=== PATIENT | female | born 1950 | race Caucasian/White ===

== ENCOUNTER 2017-12-08 18:11 | Inpatient (IN) | payer OTHER, MEDICARE ==
[2017-12-08] MEDS ORDERED: IPRATROPIUM/ALBUTEROL 3 ML DEYVIAL ONE (18:24)
[2017-12-08] MEDS ORDERED: IPRATROPIUM/ALBUTEROL 3 ML DEYVIAL IH ONE ×2 (18:34→18:40)
--- NOTE | 2017-12-08 18:35 | EDPHY ---
H & P Stated Complaint: sob Time Seen by Provider: 12/08/17 18:34 HPI/ROS: HPI: This is a 59-year-old female who presents with Chief Complaint: Cough x2 weeks Location: Chest Quality: Cough Duration: 2 weeks Signs and Symptoms: no shortness of breath at rest, no shortness of breath on exertion, + productive cough, + pleuritic chest pain, no palpitations, no lower extremity edema, + wheezing, no orthopnea, no paroxysmal nocturnal dyspnea, no fever, no injury/trauma, no hemoptysis, no carpal pedal spasms Timing: Worsening Severity: Moderate Context: Patient has a history of asthma-nonsmoker, presents from primary care office with concerns of pneumonia. Reports that approximately 2 weeks ago she felt like she had the flu with fever, body aches, fatigue, and nonproductive cough. Reports that over the last 1 week her symptoms have rapidly worsened now she has productive cough with green sputum and wheezing. Patient reports that she normally does not have to use her albuterol inhaler. Modifying Factors: [id number] antipyretic Comment: ROS: see HPI Constitutional: + fever, no chills, no weight loss Eyes: No blurred vision Respiratory: + shortness of breath, + cough Cardiovascular: No chest pain, no palpitations, no lower extremity edema Gastrointestinal: No nausea, no vomiting, no diarrhea Genitourinary: No dysuria Extremities: No myalgias Neurologic: No weakness, no numbness Skin: No rashes Hematologic: No bruising, no bleeding MEDICAL/SURGICAL/SOCIAL HISTORY: Medical/surgical history: cholesterol, hypothyroidism, GERD, 4 joint replacements; arthritis, ITP, c.diff, asthma Social history: . Retired. CONSTITUTIONAL: Ill but nontoxic-appearing elderly white female, awake and alert, no obvious distress HEENT: Atraumatic and normocephalic, PERRL, EOMI. Tympanic membranes clear. Oropharynx clear, no exudate and moist pink mucosa. Airway patent. No lymphadenopathy. No meningismus. Cardiovascular: Normal S1/S2, tachycardia, regular rhythm, without murmur rub or gallop. PULMONARY/CHEST: Symmetrical and nontender. Rhonchi throughout; fair air movement. Tachypnea noted. Mild accessory muscle usage. ABDOMEN: Soft, nondistended, nontender, no rebound, no guarding, no peritoneal signs, no masses or organomegaly. No CVAT. EXTREMITIES: 2/2 pulses, strength 5/5, no deformities, no clubbing, no cyanosis or edema. NEUROLOGICAL: no focal neuro deficits. GCS 15. SKIN: Warm and dry, no erythema. no rash. Good capillary refill. Source: Patient Exam Limitations: No limitations - Personal History Current Tetanus/Diphtheria Vaccine: Yes Current Tetanus Diphtheria and Acellular Pertussis (TDAP): Yes Tetanus Vaccine Date: 2013 - Medical/Surgical History Hx Asthma: Yes Hx Chronic Respiratory Disease: No Hx Diabetes: No Hx Cardiac Disease: No Hx Renal Disease: No Hx Cirrhosis: No Hx Alcoholism: No Hx HIV/AIDS: No Hx Splenectomy or Spleen Trauma: No Other PMH: cholesterol, hypothyoid, GERD. 4 joint replacements; arthritis, ITP , c.diff - Social History Smoking Status: Never smoked Constitutional: Initial Vital Signs Temperature (C) 36.9 C 12/08/17 18:17 Heart Rate 115 H 12/08/17 18:17 Respiratory Rate 24 H 12/08/17 18:17 Blood Pressure 145/74 H 12/08/17 18:17 O2 Sat (%) 91 L 12/08/17 18:17 O2 Delivery Mode Room Air Allergies/Adverse Reactions: Penicillins Allergy (Mild, Verified 12/08/17 18:15) Rash MACADAMIAN NUTS Allergy (Severe, Uncoded 12/08/17 18:15) Anaphylaxis Home Medications: Medication Instructions Recorded Fluocinonide 0.05% [Lidex 0.05% 1 yasmin TP BID PRN 10/04/14 Ointment] Levothyroxine [Synthroid 175 mcg 175 mcg PO DAILY06 10/04/14 (*)] Simvastatin [Zocor 40 mg] 40 mg PO HS 10/04/14 Ferrous Sulfate [Ferrous Sulf 325 325 mg PO DAILY #30 tab 10/05/14 MG (*)] Pantoprazole Sodium [Protonix 40mg 40 mg PO DAILY #30 tab 10/05/14 (*)] Ibuprofen 12/08/17 Probiotic 12/08/17 Vitamin D3 12/08/17 Medical Decision Making - Diagnostics EKG Interpretation: 12 lead EKG: Indication: Shortness of breath Rhythm: Sinus tachycardia, rate 111 beats per minute [place]: Normal Intervals: Normal QRS: Normal ST segments: Normal T-waves: Normal INTERPRETATION: No acute ischemic changes The 12 lead EKG was interpreted by myself and with attending. Imaging Results: Imaging Impressions Chest X-Ray 12/08/17 18:35 Impression: Findings consistent with airways disease are noted. Streaky perihilar opacities and left lower lobe opacity could reflect superimposed pneumonia. ED Course/Re-evaluation: Vital signs reviewed upon arrival and 91%. O2 sats were 88% in the PCP office. Sepsis protocol initiated. EKG, Labs, blood cultures, chest x-ray, IV fluids, IV medication, nebulizer therapy, oral medications ordered Given 500 cc normal saline, Tessalon Perle, DuoNeb x2, IV Solu-Medrol 125 mg 1925: Labs reviewed and show WBC 21.87 K, potassium 3.2; given oral supplementation 20 mEq Chest x-ray my read shows airways disease are noted. Streaky perihilar opacities and left lower lobe opacity could reflect superimposed pneumonia. IV Rocephin and Zithromax ordered. Reassessed vitals; no improvement from admission to ER. 1947: ED decision to consult for admission. Community-acquired pneumonia, asthma exacerbation and hypoxia. Spoke with hospitalist, Dr. Carr, who kindly agrees to admit patient and provide further care. This patient was seen under the supervision of my secondary supervising physician. I evaluated care for this patient independently. Discussed this patient with Dr. Rhoades who did not see the patient. Differential Diagnosis: Shortness of breath including but not limited to pulmonary infectious process, COPD, asthma, pulmonary embolus and congestive heart failure. - Data Points Laboratory Results: Laboratory Results 12/08/17 18:30 12/08/17 18:30 12/08/17 12/08/17 12/08/17 18:52 18:30 18:30 WBC 21.87 10^3/uL H 10^3/uL (3.80-9.50) RBC 4.88 10^6/uL 10^6/uL (4.18-5.33) Hgb 13.6 g/dL g/dL (12.6-16.3) Hct 42.1 % % (38.0-47.0) MCV 86.3 fL fL (81.5-99.8) MCH 27.9 pg pg (27.9-34.1) MCHC 32.3 g/dL L g/dL (32.4-36.7) RDW 14.3 % % (11.5-15.2) Plt Count 296 10^3/uL 10^3/uL (150-400) MPV 10.8 fL fL (8.7-11.7) Neut % (Auto) 90.3 % H % (39.3-74.2) Lymph % (Auto) 3.5 % L % (15.0-45.0) Mcmullen % (Auto) 4.5 % % (4.5-13.0) Eos % (Auto) 0.4 % L % (0.6-7.6) Baso % (Auto) 0.2 % L % (0.3-1.7) Nucleat RBC Rel Count 0.0 % % (0.0-0.2) Absolute Neuts (auto) 19.74 10^3/uL H 10^3/uL (1.70-6.50) Absolute Lymphs (auto) 0.76 10^3/uL L 10^3/uL (1.00-3.00) Absolute Monos (auto) 0.98 10^3/uL H 10^3/uL (0.30-0.80) Absolute Eos (auto) 0.09 10^3/uL 10^3/uL (0.03-0.40) Absolute Basos (auto) 0.05 10^3/uL 10^3/uL (0.02-0.10) Absolute Nucleated RBC 0.00 10^3/uL 10^3/uL (0-0.01) Immature Gran % 1.1 % % (0.0-1.1) Immature Gran # 0.25 10^3/uL H 10^3/uL (0.00-0.10) VBG Lactic Acid 1.4 mmol/L mmol/L (0.7-2.1) Sodium 143 mEq/L mEq/L (135-145) Potassium 3.2 mEq/L L mEq/L (3.5-5.2) Chloride 105 mEq/L mEq/L (97-110) Carbon Dioxide 24 mEq/l mEq/l (22-31) Anion Gap 14 mEq/L mEq/L (8-16) BUN 17 mg/dL mg/dL (7-23) Creatinine 0.7 mg/dL mg/dL (0.6-1.0) Estimated GFR > 60 Glucose 112 mg/dL H mg/dL (70-100) Calcium 8.6 mg/dL mg/dL (8.5-10.4) Total Bilirubin 1.0 mg/dL mg/dL (0.1-1.4) Conjugated Bilirubin 0.6 mg/dL H mg/dL (0.0-0.5) Unconjugated Bilirubin 0.4 mg/dL mg/dL (0.0-1.1) AST 57 IU/L H IU/L (14-46) ALT 47 IU/L IU/L (9-52) Alkaline Phosphatase 143 IU/L H IU/L (38-126) Total Protein 5.7 g/dL L g/dL (6.3-8.2) Albumin 3.4 g/dL L g/dL (3.5-5.0) Medications Given: Azithromycin 500 mg/ Dextrose 255 mls @ 255 mls/hr IV EDNOW ONE PRN Reason: Protocol Stop: 12/08/17 20:25 Last Admin: 12/08/17 20:05 Dose: 255 mls Discontinued Medications Albuterol/Ipratropium (Duoneb) 3 ml IH EDNOW ONE Stop: 12/08/17 18:35 Last Admin: 12/08/17 18:35 Dose: 3 ml Albuterol/Ipratropium (Duoneb) 3 ml IH EDNOW ONE Stop: 12/08/17 18:41 Last Admin: 12/08/17 19:06 Dose: 3 ml Benzonatate (Tessalon Pearles) 200 mg PO EDNOW ONE Stop: 12/08/17 18:40 Last Admin: 12/08/17 19:00 Dose: 200 mg Sodium Chloride (Ns) 500 mls @ 1,000 mls/hr IV EDNOW ONE PRN Reason: Protocol Stop: 12/08/17 19:09 Last Admin: 12/08/17 19:09 Dose: 500 mls Ceftriaxone Sodium 2 gm/ (Sterile Water) 20 mls @ 300 mls/hr IV EDNOW ONE PRN Reason: Protocol Stop: 12/08/17 19:29 Last Admin: 12/08/17 20:00 Dose: 20 mls Methylprednisolone Sodium Succinate (Solu-Medrol) 125 mg IVP EDNOW ONE Stop: 12/08/17 18:40 Last Admin: 12/08/17 19:09 Dose: 125 mg Departure - Departure Disposition: [facility] Inpatient Acute Clinical Impression: Hypoxia Community acquired pneumonia Qualifiers: Laterality: unspecified laterality Qualified Code(s): J18.9 - Pneumonia, unspecified organism Asthma with acute exacerbation in adult Qualifiers: Asthma severity: moderate Asthma persistence: persistent Qualified Code(s): J45.41 - Moderate persistent asthma with (acute) exacerbation Condition: Fair
[2017-12-08] MEDS ORDERED: BENZONATATE 100 MG CAP PO ONE (18:39)
[2017-12-08] MEDS ORDERED: methylPREDNISolone SOD SUCC 125 MG/2 ML VIAL IVP ONE (18:39)
[2017-12-08] MEDS ORDERED: NS 500 ML IV ONE (18:40)
[2017-12-08 18:59] LABS: PLATELET COUNT 296 10^3/uL (150-400)
--- NOTE | 2017-12-08 19:25 | CPEKG ---
Heart Rate: 111 RR Interval: 541 P-R Interval: 136 QRSD Interval: 90 QT Interval: 332 QTC Interval: 451 P [place]: 58 QRS [place]: -9 T Wave [place]: 5 EKG Severity - BORDERLINE ECG - EKG Impression: SINUS TACHYCARDIA EKG Impression: PROBABLE LEFT ATRIAL ABNORMALITY Electronically Signed By: Spike Rhoades 08-Dec-2017 21:01:31
[2017-12-08] MEDS ORDERED: AZITHROMYCIN IV 500 MG in D5W 250 ML IV ONE (19:26)
[2017-12-08] MEDS ORDERED: cefTRIAXone 2 GM in STERILE WATER INJ 20 ML IV ONE (19:26)
[2017-12-08] MEDS ORDERED: ACETAMINOPHEN 325 MG TAB PO PRN (22:32)
[2017-12-08] MEDS ORDERED: ALBUTEROL 3 ML DEYVIAL IH PRN (22:32)
[2017-12-08] MEDS ORDERED: ONDANSETRON 4 MG/2 ML VIAL IVP PRN (22:32)
[2017-12-08] MEDS ORDERED: PROTOCOL POTASSIUM 1 DOSE MISC PRN (22:37)
[2017-12-08] MEDS ORDERED: POTASSIUM CL 20 MEQ TAB PO ONE (23:00)
--- NOTE | 2017-12-08 23:56 | PDGENHP ---
History and Physical - Chief Complaint cough - History of Present Illness Source-patient provides history appears reliable. EMR was reviewed and case discussed with accepting hospitalist provider. HPI - this is a very pleasant 67-year-old female with past medical history significant for intermittent if not rare asthma who presents emergency department today with complaints of progressive cough worsening over the last 2 weeks. Patient also has been experiencing increasing shortness of breath particularly on orthopnea can nature and with exertion. She has had increasing productivity in her cough that is now green sputum. She has also noting some pleuritic-type chest pain related to persistent coughing. She has experienced some wheezing her asthma has been relatively well controlled and she has not had an inhaler requirement and sometime and has not had this available. Patient states that she developed flu-like symptoms approximately 2 weeks ago where she was experiencing fevers without any chills and diffuse myalgias. Patient denies any chest pain palpitations dysuria hematuria diarrhea abdominal pain or any new rashes or sores. She has had some fevers without any chills. History Information - Allergies/Home Medication List Allergies/Adverse Reactions: Penicillins Allergy (Mild, Verified 12/08/17 18:15) Rash MACADAMIAN NUTS Allergy (Severe, Uncoded 12/08/17 18:15) Anaphylaxis Home Medications: Levothyroxine [Synthroid 175 mcg (*)] 175 mcg PO DAILY06 10/04/14 [Last Taken 06:00] Simvastatin [Zocor 40 mg] 40 mg PO HS 10/04/14 [Last Taken 12/07/17] Cholecalciferol (Vitamin D3) [Vitamin D3] 5,000 units PO DAILY 12/08/17 [Last Taken 12/08/17 09:00] Ferrous Sulfate [Ferrous Sulf 325 MG (*)] 325 mg PO BID 12/08/17 [Last Taken 09:00] Herbals/Supplements -Info Only 1 ea PO DAILY 12/08/17 [Last Taken Unknown] Ibuprofen [Motrin (*)] 800 mg PO BID 12/08/17 [Last Taken 12/08/17 09:00] I have personally reviewed and updated: family history, medical history, social history, surgical history - Past Medical History asthma Additional medical history: Asthma, HLD, hypothyroidism, GERD, osteoarthritis, ITP, C difficile - Surgical History Additional surgical history: Total joint replacement -bilateral shoulders, bilateral knees, x2 - Family History Additional family history: Patient denies asthma/COPD, CAD, dm 2 - Social History Smoking Status: Never smoked Alcohol Use: None Drug Use: None Additional social history: and lives with . 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 Cor status-full Review of Systems Review of Systems: ROS: 10pt was reviewed & negative except for what was stated in HPI & below Constitutional: Reports: chills, fever, recent illness (X2 weeks patient developed viral type symptoms appeared to resolve 1 week ago) EENMT: Reports: sore throat, other (No rhinorrhea). Denies: blurred vision, nose congestion Cardiac: Reports: no symptoms. Denies: chest pain, palpitations Respiratory: Reports: cough (Productive of green sputum.), orthopnea, shortness of breath (With exertion), wheezing, other (See HPI.) Gastrointestinal: Reports: no symptoms. Denies: vomitting, abdominal pain, diarrhea, nausea Genitourinary: Reports: no symptoms, dysuria. Denies: hematuria Muscolosketal: Reports: joint pain (Osteoarthritis), muscle pain (Pleuritic chest pain) Skin: Reports: no symptoms Neurological: Reports: no symptoms. Denies: headache, weakness Physical Exam Physical Exam: Selected Entries 12/08/17 18:17 Blood Pressure Automatic Method Heart Rate 115 H Respiratory 24 H Rate O2 Sat (%) 91 L Temperature (C) 36.9 C Blood Pressure 145/74 H Mean Arterial 97 Pressure (MAP) O2 Delivery Room Air Mode Temperature Oral Source Temp Pulse Resp BP Pulse Ox 36.9 C 88 22 H 114/66 93 12/08/17 23:26 12/08/17 23:26 12/08/17 23:26 12/08/17 23:26 12/08/17 23:26 O2 (L/minute) 2 Constitutional: not in pain, chronically ill appearing, obese, other (Patient in no acute distress. She is lying quietly in bed with mild increased work of breathing.) Eyes: PERRL, anicteric sclera, EOMI (Grossly intact), No scleral injection Ears, Nose, Mouth, Throat: moist mucous membranes, other (No nasal discharge), No poor dentition Cardiovascular: pulses symmetric bilaterally, tachycardia, other (Regular rhythm ), No systolic murmur, No edema Peripheral Pulses: 2+: dorsalis-pedis (R), dorsalis-pedis (L) Respiratory: reduced air movement, inspiratory crackles (Left lower lung base greater than the right lower lung), rhonchi (Bilateral lower lung leary.), other (Patient with increased work of breathing.), No clear to auscultation, No expiratory wheeze Gastrointestinal: normoactive bowel sounds, soft, non-tender abdomen, no palpable masses, No rebound, No distension Genitourinary: no bladder tenderness, No serra in urethra Skin: warm, normal color, no rashes or abrasions, No rash Musculoskeletal: other (Patient moves all extremities. Strength grossly intact. Patient able to sit up independently.), No generalized weakness Neurologic: AAOx3, sensation intact bilaterally, CN II-XII Intact (Grossly intact nonfocal.), No numbness, No facial droop Psychiatric: interacting appropriately, not anxious, not encephalopathic, thought process linear Lab Data & Imaging Review 12/08/17 18:30 12/08/17 18:30 WBC 21.87 10^3/uL (3.80-9.50) H 12/08/17 18:30 RBC 4.88 10^6/uL (4.18-5.33) 12/08/17 18:30 Hgb 13.6 g/dL (12.6-16.3) 12/08/17 18:30 Hct 42.1 % (38.0-47.0) 12/08/17 18:30 MCV 86.3 fL (81.5-99.8) 12/08/17 18:30 MCH 27.9 pg (27.9-34.1) 12/08/17 18:30 MCHC 32.3 g/dL (32.4-36.7) L 12/08/17 18:30 RDW 14.3 % (11.5-15.2) 12/08/17 18:30 Plt Count 296 10^3/uL (150-400) 12/08/17 18:30 MPV 10.8 fL (8.7-11.7) 12/08/17 18:30 Neut % (Auto) 90.3 % (39.3-74.2) H 12/08/17 18:30 Lymph % (Auto) 3.5 % (15.0-45.0) L 12/08/17 18:30 Barry % (Auto) 4.5 % (4.5-13.0) 12/08/17 18:30 Eos % (Auto) 0.4 % (0.6-7.6) L 12/08/17 18:30 Baso % (Auto) 0.2 % (0.3-1.7) L 12/08/17 18:30 Nucleat RBC Rel Count 0.0 % (0.0-0.2) 12/08/17 18:30 Absolute Neuts (auto) 19.74 10^3/uL (1.70-6.50) H 12/08/17 18:30 Absolute Lymphs (auto) 0.76 10^3/uL (1.00-3.00) L 12/08/17 18:30 Absolute Monos (auto) 0.98 10^3/uL (0.30-0.80) H 12/08/17 18:30 Absolute Eos (auto) 0.09 10^3/uL (0.03-0.40) 12/08/17 18:30 Absolute Basos (auto) 0.05 10^3/uL (0.02-0.10) 12/08/17 18:30 Absolute Nucleated RBC 0.00 10^3/uL (0-0.01) 12/08/17 18:30 Immature Gran % 1.1 % (0.0-1.1) 12/08/17 18:30 Immature Gran # 0.25 10^3/uL (0.00-0.10) H 12/08/17 18:30 VBG Lactic Acid 1.4 mmol/L (0.7-2.1) 12/08/17 18:52 Sodium 143 mEq/L (135-145) 12/08/17 18:30 Potassium 3.2 mEq/L (3.5-5.2) L 12/08/17 18:30 Chloride 105 mEq/L (97-110) 12/08/17 18:30 Carbon Dioxide 24 mEq/l (22-31) 12/08/17 18:30 Anion Gap 14 mEq/L (8-16) 12/08/17 18:30 BUN 17 mg/dL (7-23) 12/08/17 18:30 Creatinine 0.7 mg/dL (0.6-1.0) 12/08/17 18:30 Estimated GFR > 60 12/08/17 18:30 Glucose 112 mg/dL (70-100) H 12/08/17 18:30 Calcium 8.6 mg/dL (8.5-10.4) 12/08/17 18:30 Total Bilirubin 1.0 mg/dL (0.1-1.4) 12/08/17 18:30 Conjugated Bilirubin 0.6 mg/dL (0.0-0.5) H 12/08/17 18:30 Unconjugated Bilirubin 0.4 mg/dL (0.0-1.1) 12/08/17 18:30 AST 57 IU/L (14-46) H 12/08/17 18:30 ALT 47 IU/L (9-52) 12/08/17 18:30 Alkaline Phosphatase 143 IU/L (38-126) H 12/08/17 18:30 Total Protein 5.7 g/dL (6.3-8.2) L 12/08/17 18:30 Albumin 3.4 g/dL (3.5-5.0) L 12/08/17 18:30 Imaging Review: PA and Lateral Chest Clinical Indications: Loss and shortness of breath x1 week in a 67-year-old female. Comparison: April 17, 2011. Findings: Peribronchial thickening is noted. There is more focal opacity at the left lung base which could reflect pneumonia.. There is hyperexpansion with flattening of the hemidiaphragms noted. Streaky perihilar opacities are present bilaterally. The heart size and pulmonary vascularity are normal. Pleural surfaces and bony thorax are negative for acute abnormality. Impression: Findings consistent with airways disease are noted. Streaky perihilar opacities and left lower lobe opacity could reflect superimposed pneumonia. Visualized and Interpreted Chest x-ray results: Yes EKG additional interpertation: Sinus tachycardia in the 110s. No acute ST changes. ST depressions in the lateral leads noted. QTC is 451. Assessment & Plan Assessment: Asthma with acute exacerbation in adult (Acute) - patient with the preceding report of several weeks of viral type syndrome. She has a respiratory PCR pending. Blood cultures have been obtained x2. Patient is status post appropriate IV fluid hydration she was noted to have SIRS criteria with leukocytosis and tachycardia with tachypnea. Her patient's lactate was and renal function otherwise normal. Heart rate has improved following administration of IV fluids inappropriate respiratory treatment. She has received steroids, nebulizer antibiotics including azithromycin and Rocephin in the emergency department. Will plan to continue these at this time. Also will obtain a sputum sample. Patient is concerned regarding her increased risk for recurrent C diff although she has had a singular episode sometime ago in 2016. Will plan to obtain a sputum culture while we await blood cultures as well. Will continue with steroid burst as well as nebulizer therapy p.r.n.. Community acquired pneumonia (Acute) - left lower lobe infiltrate noted on x- ray likely postviral pneumonia. Antibiotics and plan as noted above. Hypoxia (Acute) - supplemental oxygen and titrate down as tolerated to maintain saturations 90%. Hypokalemia-check magnesium. Replace electrolytes. Hypoalbuminemia-likely related to patient's acute medical issues versus acute and chronic. Will plan to monitor. Encourage oral intake as tolerated. HLD resume patient's statin Hypothyroidism-resume patient's levothyroxine replacement. GERD continue patient's GI prophylaxis Osteoarthritis-supportive care ITP-monitor patient's platelet and count in H&H closely in setting of post viral syndrome. History C diff-patient without any abdominal pain or diarrhea at this point. If she should develop some symptoms while antibiotic therapy and then will plan to check a stool sample and adjust patient's antibiotic regimen as appropriate. FEN - patient is tolerating oral hydration very well. Will continue to encourage in discussed with the patient. Will hold off on IV antibiotics. Electrolyte monitoring replacement as noted above. Diet as tolerated. PPX-SCDs. Lovenox. Cor status-full Disposition patient admitted to observation status on the medical floor at this time pending re-evaluation morning.
[2017-12-09] MEDS: GUAIFENESIN/DM 10 ML UDCUP PO PRN ×3 (01:09→14:06)
[2017-12-09 05:13] LABS: PLATELET COUNT 264 10^3/uL (150-400)
[2017-12-09] MEDS: LEVOTHYROXINE 175 MCG TAB PO SCH (05:47)
[2017-12-09] MEDS: BENZONATATE 100 MG CAP PO PRN ×3 (06:02→22:49)
[2017-12-09] MEDS ORDERED: POTASSIUM Cl (KCl) 100 ML IV SCH (07:30)
[2017-12-09] MEDS: ENOXAPARIN 40 MG/0.4 ML SYR SC SCH (08:16)
[2017-12-09] MEDS: PANTOPRAZOLE SODIUM 40 MG TAB PO SCH (08:17)
[2017-12-09] MEDS: POTASSIUM Cl (KCl) 10 MEQ in NS 100 ML IV SCH ×2 (08:17→10:01)
[2017-12-09] MEDS ORDERED: predniSONE 20 MG TAB PO SCH (09:00)
[2017-12-09] MEDS: VANCOMYCIN 125 MG/2.5 ML UDL PO SCH ×3 (11:42→21:16)
--- NOTE | 2017-12-09 12:37 | HOSPPROG ---
Hospitalist Progress Note Assessment/Plan: 67y female with c/o SOB. First encounter, chart reviewed. D/W RN. #Asthma with acute exacerbation in adult (Acute) - reports two weeks viral type syndrome. respiratory PCR negative. Blood cultures have been obtained x2 pending Prednisone 40mg po daily, nebulizer sputum sample undetermined #Community acquired pneumonia (Acute) - left lower lobe infiltrate noted on x-ray likely postviral pneumonia. antibiotics including azithromycin and Rocephin repeat CXR in am check procalcitonin #Acute Hypoxemic resp failure (Acute) - supplemental oxygen and titrate down as tolerated to maintain saturations 90%. #Hypokalemia- stable #Hypoalbuminemia- likely related to patient's acute medical issues poor po intake Encourage oral intake as tolerated. #HLD resume patient's statin #Hypothyroidism- resume patient's levothyroxine replacement. #GERD continue patient's GI prophylaxis #Osteoarthritis- supportive care #ITP- monitor patient's platelet and count in H&H closely in setting of post viral syndrome. #History C diff- patient without any abdominal pain or diarrhea at this point. will start prophylactic vanco in setting of hx of fecal transplant If she should develop some symptoms while antibiotic therapy and then will plan to check a stool sample #FEN - patient is tolerating oral hydration very well. PPX-SCDs. Lovenox. #Cor status-full #Disposition- change to inpatient status will need further supportive care in hospital Subjective: Still having coughing. Feeling a bit better today. Objective: Vital Signs Temp Pulse Resp BP Pulse Ox 36.8 C 86 18 124/78 H 90 L 12/09/17 11:00 12/09/17 11:00 12/09/17 11:00 12/09/17 11:00 12/09/17 11:00 Microbiology 12/09/17 06:00 - Final Sputum, Expectorated Sputum Culture - Final 12/08/17 21:06 Respiratory Panel (PCR) - Final Nasal, Sinus - Swab No Organism Detected Laboratory Results 12/09/17 04:25 12/09/17 04:25 12/08/17 12/09/17 12/10/17 05:59 05:59 05:59 Intake Total 1025 Output Total 650 Balance 375 - Physical Exam Constitutional: appears nourished, not in pain, obese Eyes: PERRL, anicteric sclera, EOMI Ears, Nose, Mouth, Throat: moist mucous membranes, hearing normal, ears appear normal Cardiovascular: No JVD, No tachycardia, No edema Respiratory: no respiratory distress, reduced air movement, expiratory wheeze, rhonchi Gastrointestinal: normoactive bowel sounds, soft, non-tender abdomen, No ascites Skin: warm, normal color, No mottled Musculoskeletal: normal joint ROM, no joint effusions, generalized weakness Neurologic: AAOx3 Psychiatric: interacting appropriately, not anxious, not encephalopathic, thought process linear ICD10 Worksheet Patient Problems: Problems Problem Status Onset ITP (idiopathic thrombocytopenic purpura) Acute 10/04/14 Iron deficiency anemia Acute 10/04/14 C. difficile diarrhea Acute 10/19/15 Hypoxia Acute Community acquired pneumonia Acute Asthma with acute exacerbation in adult Acute
--- NOTE | 2017-12-09 12:41 | ASMTCMCOM ---
CM Note CM Note Notes: Spoke w/RN, pt lives at home with and is independent with ADLs. Anticipate she will dc home w/support of when medically stable. No therapies have been ordered, CM available for any changes. DC Plan: Independent Date Signed: 12/09/2017 12:41 PM Electronically Signed By:Joana Hui RN
[2017-12-09] MEDS: AZITHROMYCIN IV 250 MG in NS 250 ML IV SCH (14:34)
--- NOTE | 2017-12-09 14:39 | PDMN ---
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
[2017-12-09] MEDS ORDERED: AZITHROMYCIN IV 250 MG in NS 250 ML IV SCH (20:00)
[2017-12-09] MEDS: TEMAZEPAM 15 MG CAP PO PRN (21:23)
[2017-12-10] MEDS: GUAIFENESIN/DM 10 ML UDCUP PO PRN ×3 (04:08→21:40)
[2017-12-10] MEDS: VANCOMYCIN 125 MG/2.5 ML UDL PO SCH ×4 (05:22→21:31)
[2017-12-10] MEDS: LEVOTHYROXINE 175 MCG TAB PO SCH (05:22)
[2017-12-10] MEDS: predniSONE 20 MG TAB PO SCH (08:39)
[2017-12-10] MEDS: PANTOPRAZOLE SODIUM 40 MG TAB PO SCH (08:40)
[2017-12-10] MEDS: ENOXAPARIN 40 MG/0.4 ML SYR SC SCH (08:40)
[2017-12-10] MEDS: AZITHROMYCIN IV 250 MG in NS 250 ML IV SCH (08:41)
[2017-12-10] MEDS: guaiFENesin 600 MG TAB.ER PO SCH ×2 (12:10→21:30)
--- NOTE | 2017-12-10 13:06 | HOSPPROG ---
Hospitalist Progress Note Assessment/Plan: 67y female with c/o SOB. #Asthma with acute exacerbation in adult (Acute) - reports two weeks viral type syndrome. respiratory PCR negative. Blood cultures have been obtained x2 pending Prednisone 40mg po daily, nebulizer sputum sample undetermined #Community acquired pneumonia (Acute) - left lower lobe infiltrate noted on x-ray likely postviral pneumonia. Personally reviewed. antibiotics including azithromycin and Rocephin #Acute Hypoxemic resp failure (Acute) - supplemental oxygen and titrate down as tolerated to maintain saturations 90%. #Hypokalemia- stable #Hypoalbuminemia- likely related to patient's acute medical issues poor po intake Encourage oral intake as tolerated. #HLD resume patient's statin #Hypothyroidism- resume patient's levothyroxine replacement. #GERD continue patient's GI prophylaxis #Osteoarthritis- supportive care #Hx ITP- monitor patient's platelet and count in H&H closely in setting of post viral syndrome. #History C diff- patient without any abdominal pain or diarrhea at this point. will start prophylactic vanco in setting of hx of fecal transplant If she should develop some symptoms while antibiotic therapy and then will plan to check a stool sample #FEN - patient is tolerating oral hydration very well. PPX-SCDs. Lovenox. #Cor status-full #Disposition- will need further supportive care in hospital Subjective: Still coughing. Feeling a bit better. Objective: Vital Signs Temp Pulse Resp BP Pulse Ox 36.7 C 78 18 122/64 H 92 12/10/17 11:00 12/10/17 11:00 12/10/17 11:00 12/10/17 11:00 12/10/17 11:00 Microbiology 12/09/17 14:15 - Final Sputum, Expectorated 12/09/17 06:00 - Final Sputum, Expectorated Sputum Culture - Final Laboratory Results 12/09/17 04:25 12/10/17 04:20 12/09/17 12/10/17 12/11/17 05:59 05:59 05:59 Intake Total 1025 700 Output Total 650 800 Balance 375 -100 - Physical Exam Constitutional: appears nourished, obese Eyes: PERRL, anicteric sclera Ears, Nose, Mouth, Throat: moist mucous membranes, hearing normal Cardiovascular: No JVD, No edema Respiratory: no respiratory distress, no rales or rhonchi Gastrointestinal: No tenderness, No ascites Skin: warm, normal color Musculoskeletal: no joint effusions, generalized weakness Neurologic: AAOx3 Psychiatric: interacting appropriately, not anxious, not encephalopathic, thought process linear ICD10 Worksheet Patient Problems: Problems Problem Status Onset ITP (idiopathic thrombocytopenic purpura) Acute 10/04/14 Iron deficiency anemia Acute 10/04/14 C. difficile diarrhea Acute 10/19/15 Hypoxia Acute Community acquired pneumonia Acute Asthma with acute exacerbation in adult Acute
[2017-12-10] MEDS: BENZONATATE 100 MG CAP PO PRN (21:40)
[2017-12-10] MEDS: TEMAZEPAM 15 MG CAP PO PRN (21:40)
[2017-12-11] MEDS: VANCOMYCIN 125 MG/2.5 ML UDL PO SCH ×4 (07:53→20:27)
[2017-12-11] MEDS: LEVOTHYROXINE 175 MCG TAB PO SCH (07:53)
[2017-12-11] MEDS: guaiFENesin 600 MG TAB.ER PO SCH ×2 (08:25→20:26)
[2017-12-11] MEDS: ENOXAPARIN 40 MG/0.4 ML SYR SC SCH (08:26)
[2017-12-11] MEDS: predniSONE 20 MG TAB PO SCH (08:26)
[2017-12-11] MEDS: PANTOPRAZOLE SODIUM 40 MG TAB PO SCH (08:26)
[2017-12-11] MEDS: AZITHROMYCIN IV 250 MG in NS 250 ML IV SCH (08:27)
--- NOTE | 2017-12-11 12:17 | HOSPPROG ---
Hospitalist Progress Note Assessment/Plan: 67y female with c/o SOB. #Asthma with acute exacerbation in adult (Acute) - reports two weeks viral type syndrome. respiratory PCR negative. Blood cultures have been obtained x2 NGTD Prednisone 40mg po daily, Day #4, nebulizer sputum sample undetermined #Community acquired pneumonia (Acute) - left lower lobe infiltrate noted on x-ray likely postviral pneumonia. antibiotics including azithromycin and Rocephin D4/5 will only treat for 5 days due to hx of cdiff and new research rec #Acute Hypoxemic resp failure (Acute) - supplemental oxygen and titrate down as tolerated to maintain saturations 90%. #Hypokalemia- resolved #Hypoalbuminemia- likely related to patient's acute medical issues poor po intake Encourage oral intake as tolerated. #HLD resume patient's statin #Hypothyroidism- resume patient's levothyroxine replacement. #GERD continue patient's GI prophylaxis #Osteoarthritis- supportive care #Hx ITP- monitor patient's platelet and count in H&H closely in setting of post viral syndrome. #History C diff- patient without any abdominal pain or diarrhea at this point. prophylactic vanco in setting of hx of fecal transplant If she should develop some symptoms while antibiotic therapy and then will plan to check a stool sample cont prophylactic vanco after abx finished, 7 days? #FEN - patient is tolerating oral hydration very well. PPX-SCDs. Lovenox. #Cor status-full #Disposition- will need further supportive care in hospital not open to SNF will likely need home O2 Needs new PCP, rec Anastasiya Wilkinson, pt to call for appointment. Previous PCP Barbara, cutting back and location is too far. Subjective: Slept well last night. Not feeling much better. Feeling weak. Objective: Vital Signs Temp Pulse Resp BP Pulse Ox 36.9 C 68 18 124/83 H 92 12/11/17 11:39 12/11/17 11:39 12/11/17 11:39 12/11/17 11:39 12/11/17 11:39 Microbiology 12/09/17 14:15 - Final Sputum, Expectorated Laboratory Results 12/09/17 04:25 12/11/17 04:15 12/10/17 12/11/17 12/12/17 05:59 05:59 05:59 Intake Total 1350 Output Total 800 200 Balance 550 -200 - Physical Exam Constitutional: appears nourished, chronically ill appearing, obese Eyes: PERRL, anicteric sclera, EOMI Ears, Nose, Mouth, Throat: moist mucous membranes, hearing normal, ears appear normal Cardiovascular: No JVD, No tachycardia, No edema Respiratory: no respiratory distress, reduced air movement, rhonchi Gastrointestinal: No tenderness, No ascites Skin: warm, normal color Musculoskeletal: no joint effusions, generalized weakness Neurologic: AAOx3 Psychiatric: interacting appropriately, not anxious, not encephalopathic, thought process linear ICD10 Worksheet Patient Problems: Problems Problem Status Onset chronic disease mgmt/transitional care Acute ITP (idiopathic thrombocytopenic purpura) Acute 10/04/14 Iron deficiency anemia Acute 10/04/14 C. difficile diarrhea Acute 10/19/15 Hypoxia Acute Community acquired pneumonia Acute Asthma with acute exacerbation in adult Acute
--- NOTE | 2017-12-11 14:22 | ASMTCMCOM ---
CM Note CM Note Notes: Spoke w/RN, plan remains the same. Anticipate pt will dc home w/support of when medically stable. CM available for any changes. DC Plan: Independent Date Signed: 12/11/2017 02:21 PM Electronically Signed By:Joana Hui RN
[2017-12-11] MEDS: BENZONATATE 100 MG CAP PO PRN (20:26)
[2017-12-11] MEDS: TEMAZEPAM 15 MG CAP PO PRN (20:27)
[2017-12-11] MEDS: GUAIFENESIN/DM 10 ML UDCUP PO PRN (20:27)
[2017-12-12] MEDS: LEVOTHYROXINE 175 MCG TAB PO SCH (05:45)
[2017-12-12] MEDS: VANCOMYCIN 125 MG/2.5 ML UDL PO SCH ×2 (05:45→12:22)
[2017-12-12] MEDS: guaiFENesin 600 MG TAB.ER PO SCH (08:05)
[2017-12-12] MEDS: ENOXAPARIN 40 MG/0.4 ML SYR SC SCH (08:06)
[2017-12-12] MEDS: PANTOPRAZOLE SODIUM 40 MG TAB PO SCH (08:06)
[2017-12-12] MEDS: predniSONE 20 MG TAB PO SCH (08:06)
[2017-12-12] MEDS: AZITHROMYCIN IV 250 MG in NS 250 ML IV SCH (08:06)
--- NOTE | 2017-12-12 08:20 | HOSPPROG ---
Hospitalist Progress Note Assessment/Plan: 67y female with c/o SOB. Today is my 1st encounter with the patient. Chart reviewed. #Asthma with acute exacerbation in adult (Acute) - respiratory PCR negative. Blood cultures have been obtained x2 NGTD Prednisone 40mg po daily, Day #5 added inhaler #Community acquired pneumonia (Acute) - left lower lobe infiltrate noted on x-ray likely postviral pneumonia. antibiotics including azithromycin and Rocephin dc today w hx of c diff #Acute Hypoxemic resp failure (Acute) - resolved #Hypokalemia- resolved #HLD resume patient's statin #Hypothyroidism- levothyroxine #GERD continue patient's GI prophylaxis #Osteoarthritis- supportive care #Hx ITP- #History C diff- patient without any abdominal pain or diarrhea at this point. prophylactic vanco in setting of hx of fecal transplant #Disposition-dc today, with repeat chest xray and f/u with PCP Subjective: Michelle is feeling well, anxious to go home. Objective: Vital Signs Temp Pulse Resp BP Pulse Ox 36.6 C 73 16 141/93 H 90 L 12/12/17 07:41 12/12/17 07:41 12/12/17 07:41 12/12/17 07:41 12/12/17 07:41 Microbiology 12/09/17 14:15 - Final Sputum, Expectorated Laboratory Results 12/09/17 04:25 12/11/17 04:15 12/11/17 12/12/17 12/13/17 05:59 05:59 05:59 Intake Total 1350 1300 Output Total 800 2350 Balance 550 -1050 - Physical Exam Constitutional: no apparent distress, not in pain Eyes: PERRL Ears, Nose, Mouth, Throat: hearing normal Cardiovascular: regular rate and rhythym Respiratory: no respiratory distress, bronchial breath sounds Gastrointestinal: normoactive bowel sounds Skin: warm Musculoskeletal: full muscle strength Neurologic: AAOx3 Psychiatric: interacting appropriately, not anxious ICD10 Worksheet Patient Problems: Problems Problem Status Onset Asthma with acute exacerbation in adult Acute Community acquired pneumonia Acute Hypoxia Acute chronic disease mgmt/transitional care Acute C. difficile diarrhea Acute 10/19/15 ITP (idiopathic thrombocytopenic purpura) Acute 10/04/14 Iron deficiency anemia Acute 10/04/14
[2017-12-12] MEDS ORDERED: ALBUTEROL 60 PUFFS/8 GM MDI IH PRN (09:32)
--- NOTE | 2017-12-12 10:53 | ASMTCMCOM ---
CM Note CM Note Notes: As planned, Pt. to d/c independently to today per RN. Date Signed: 12/12/2017 10:53 AM Electronically Signed By:Nicole Robbins LCSW
[2017-12-12 10:55] VITALS: BP 141/75
--- NOTE | 2017-12-12 11:04 | GDS ---
[f rep st] DISCHARGE SUMMARY DISCHARGE DIAGNOSES: 1. Acute asthma exacerbation. 2. Community-acquired pneumonia. 3. Acute hypoxemic respiratory failure. 4. Hypokalemia. 5. Hyperlipidemia. 6. Hypothyroidism. 7. Gastroesophageal reflux disease. 8. History of osteoarthritis. 9. History of idiopathic thrombocytopenic purpura. 10. History of Clostridium difficile with a fecal transplant. BRIEF HISTORY: Briefly, Araceli Barrientos is a 67-year-old woman who has a past medical history for intermittent asthma who presented to the emergency room with complaints of progressive cough that had worsened over the past 2 weeks. She had shortness of breath with exertion and had production in her cough. She was admitted and had a chest x-ray performed that showed findings consistent with airway disease. She had streaky perihilar opacities and left lower lobe opacity, could represent a pneumonia. She was treated with ceftriaxone and azithromycin. Her blood cultures showed no growth. Her PCR panel showed no growth. Today, she is markedly improved. She will be discharged home with close followup with her primary care provider. HOSPITAL COURSE: 1. Asthma with acute exacerbation. Respiratory PCR is negative. Blood cultures are negative. She is on prednisone and on an inhaler, improved. 2. Community-acquired pneumonia. She has left lower lobe infiltrate on the x- ray, likely postviral pneumonia. Her antibiotics have been discontinued as of today. 3. Acute hypoxemic respiratory failure, resolved. 4. Hypokalemia, resolved. 5. Hyperlipidemia, statin. 6. Hypothyroidism, on Synthroid. 7. GERD, on a PPI. 8. Osteoarthritis. No complaints. 9. History of ITP, monitoring by her PCP. 10. History of Clostridium difficile. She has had no diarrhea. [facility], will not treat her with oral vancomycin at discharge. It has been recommended if she should develop frequent loose stools, to follow up with her PCP. DISCHARGE CONDITION: Stable. Blood pressure is 141/93, heart rate 73, respiratory rate is 16, O2 saturations on room air are 93%, temperature 36.6 Celsius. MEDICATIONS AT DISCHARGE: Please see the EMR. DISCHARGE INSTRUCTIONS: 1. Stay on the prednisone and wean off it over the next week and a half. 2. Follow up with her primary care provider and get a repeat chest x-ray. 3. If she develops frequent loose stools, to follow up with her PCP immediately. TIME SPENT: Greater than 30 minutes discharging and coordinating care. /[id number]/MODL and [id number]/MODL ERI
[2017-12-19] MEDS ORDERED: ATORVASTATIN CALCIUM 20 MG TAB PO SCH (21:00)
== END 2017-12-12 13:21 | disposition home or self-care (01) | DRG 193 ==
LOC: INTOOBSV 20:08 → OBSVTOIN 20:18 → F3E 21:48
PROVIDERS: ADMIT Internal Medicine; ATTEND Internal Medicine
DX: J18.9 Pneumonia, unspecified organism (principal); J45.901 Unspecified asthma with (acute) exacerbation; J96.01 Acute respiratory failure with hypoxia; E87.6 Hypokalemia; E88.09 Other disorders of plasma-protein metabolism, not elsewhere classified; E03.9 Hypothyroidism, unspecified; K21.9 Gastro-esophageal reflux disease without esophagitis; E78.5 Hyperlipidemia, unspecified; Z96.653 Presence of artificial knee joint, bilateral; Z96.611 Presence of right artificial shoulder joint; Z96.612 Presence of left artificial shoulder joint
CPT/HCPCS: 96374; 97161-GP; G0378; G8978-GP-CH; G8979-GP-CH; G8980-GP-CH; J0456; J0696; J1650; J2930; J3480; J7512; J7613

== ENCOUNTER → 2018-01-28 | Outpatient (CLI) | payer OTHER, MEDICARE | LOC: FIMAGING 13:28 | PROVIDERS: ATTEND Internal Medicine | DX: Z87.09 Personal history of other diseases of the respiratory system (principal); J45.909 Unspecified asthma, uncomplicated ==